=== PATIENT | female | born 1970 | race Caucasian/White ===

== ENCOUNTER 2024-03-12 08:04 | Outpatient (AMB) | payer BC, SELFPAY ==
--- NOTE | 2024-03-12 08:05 | A.OFFVIS_ITS ---
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 Pt reports she has been forgetful over the last 15 years, but denies it getting worse throughout the years. 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 she started noticing issues with her memory in her mid 30s. Some examples - watches a movie and does not recall in 2 days, she works at [employer] and uses a lot of reminder notes to help etc. she has trouble recalling important information that she learnt . she says that she would be the worst at [employer]. she has trouble remembering characters names in a TV episode. she moved from [place] at age 3 and learned Maori in 1 st grade and graduated Top 5 in the class. she has anxiety - for fear of being noticed for her recall issues. she sleeps ok - snores and has daytime fatigue. she used to drink 2 glasses of wine every night she feels her life is stressful - 2 children are in Autism spectrum ( 23, 21)she had depression anxiety but was not able to tolerate SSRI No h/o head injury No h/o dementia PFSH Medical History (Updated 03/12/24 @ 08:39 by Quita Allen MD) Hypersomnia Snoring Cognitive change Vitamin D deficiency Tachycardia Liver lesion Hyperlipidemia Colon polyp Surgical History H/O section Family History Father No problems noted. Mother No problems noted. Social History Household Members: Spouse and Children Alcohol intake: current Comment: Occasional- weekends Patient Tobacco Use Status: Former Tobacco user Years Smoked: Quit in 2019- on and off for 30 years Physical Exam Vital Signs: Last Vital Signs Pulse 74 03/12/24 08:10 Resp 16 03/12/24 08:10 BP 110/72 03/12/24 08:10 Pulse Ox 97 03/12/24 08:10 Oxygen Delivery Method Room Air 03/12/24 08:10 BMI result Body Mass Index 31.3 Const General: cooperative, healthy appearing and comfortable Nutritional Appearance: average body habitus Orientation/consciousness: patient oriented x3 Limitations: no limitations Eyes Pupils: Equal, round and reactive pupils present Neuro General: patient oriented x3, gait normal, tone normal and moves all extremities Cranial nerves: Yes Facial sensation intact/muscles of mastication intact, Yes Equal, round and reactive pupils present, Yes Bilaterally intact EOM present, Yes Nystagmus not present, Yes Normal facial strength present, Yes Midline tongue present, Yes Symmetric palate elevation present and Yes Ability to bilaterally elevate shoulders present Cognition (Neuro): normal cognition Gait exam (Neuro): Normal gait present Motor exam (neuro): 5/5 motor strength present throughout and Normal motor muscle tone present throughout Deep tendon reflexes (DTR's): Right triceps reflex intensity grade: 2+, Left triceps reflex intensity grade: 2+, Rt Biceps (C5, C6): 2+, Left biceps reflex intensity grade: 2+, Right brachioradialis reflex intensity grade: 2+, Left brachioradialis reflex intensity grade: 2+, Right patellar reflex intensity g rade: 2+ and Left patellar reflex intensity grade: 2+ Coordination: [id number] test normal Orientation What is the (year) (season) (date) (day) (month)?: year, season, date, day and month Where are we (state) (county) (town or city) (hospital) (floor)?: state, county, town or city, hospital/clinic and floor Registration Name of 3 unrelated objects clearly and slowly, then ask patient to repeat all 3 of them. (1st repeat determines score. Make sure they can repeat all three): object 1, object 2 and object 3 Attention & Calculation (CHOOSE ONE) Ask pt to begin with 100 & count backward by 7. Stop after 5 repeats. If pt cannot ask them to spell the word WORLD backward.: 93, 86, 79, 72 and 65 Recall Ask patient to repeat the 3 items from question #3.: object 1, object 2 and object 3 Language Show patient a wristwatch & ask what it is. Repeat for pencil.: watch and pencil Ask the patient to repeat the phrase 'No ifs, ands, or buts' after you.: correct Ask the patient to 'take a piece of paper with their right hand' 'fold paper in half' 'place paper on floor': take paper in right hand, fold paper in half and place paper on floor Print the sentence 'CLOSE YOUR EYES' on a piece. If patient actually closes eyes then score.: followed written direction Give patient a blank piece of paper & ask to write a sentence. Score if it contains a noun & verb.: sentence contains subject and verb Ask patient to copy figure of intersecting pentagons exactly. Score if all 10 angles & 2 intersects are included.: all 10 angles present & 2 are intersected Score Score: 30 Assessment & Plan Assessment & Plan (1) Cognitive change: Comment: ? poorly controlled mood, ? sleep apnea Code(s): R41.89 - Other symptoms and signs involving cognitive functions and awareness (2) Snoring: Code(s): R06.83 - Snoring (3) Hypersomnia: Code(s): G47.10 - Hypersomnia, unspecified Plan MRI Brain - April 2024 - claustrophobia - needs open MRI Suggested psychology follow up for mood Home sleep test to r/o sleep apnea Check Vit B 12 Orders: Orders MR brain wo con w neuroquant Today R41.89 - Other symptoms and signs involving cognitive functions and awareness Vitamin B12 and Folate Today R41.89 - Other symptoms and signs involving cognitive functions and awareness RT home sleep study Today G47.10 - Hypersomnia, unspecified, R06.83 - Snoring Coding Level of Care Code New Pt Level 4 (83549) Diagnoses Cognitive change R41.89 Snoring R06.83 Hypersomnia G47.10
[2024-03-12 08:10] VITALS: BP 110/72; PULSE 74; RESP 16; O2SAT 97; BMI 31.3
== END 2024-03-12 08:51 | disposition home or self-care (01) ==
PROVIDERS: PCP Physician Assistant Medical; Visit Provider Psychiatry & Neurology Neurology
DX: R41.89 Other symptoms and signs involving cognitive functions and awareness (principal); R06.83 Snoring; G47.10 Hypersomnia, unspecified
CPT/HCPCS: 99204

== ENCOUNTER → 2024-03-12 08:04 | Outpatient (BNVA) | payer OTHER, BC, SELFPAY | PROVIDERS: PCP Physician Assistant Medical; Visit Provider Psychiatry & Neurology Neurology ==

== ENCOUNTER 2024-03-12 08:56 | Outpatient (REF) | payer BC, SELFPAY ==
[2024-03-12 17:51] LABS: Folate 8.7 ng/mL (> or = 4.0); Vitamin B12 988 pg/mL (200-900)
== END 2024-03-12 08:57 | disposition home or self-care (01) ==
LOC: HO.HKASLDS 08:56
PROVIDERS: Visit Provider Psychiatry & Neurology Neurology
DX: R41.89 Other symptoms and signs involving cognitive functions and awareness (principal)
CPT/HCPCS: 36415; 82607; 82746

== ENCOUNTER → 2024-04-21 08:04 | Outpatient (REF) | payer BC, SELFPAY | LOC: HO.SL 08:04 | PROVIDERS: PCP Physician Assistant Medical; Visit Provider Psychiatry & Neurology Neurology | DX: G47.33 Obstructive sleep apnea (adult) (pediatric) (principal); G47.10 Hypersomnia, unspecified; R06.83 Snoring | CPT/HCPCS: 95806 ==

== ENCOUNTER → 2024-04-21 08:15 | Outpatient (BNV) | payer BC, SELFPAY | PROVIDERS: PCP Physician Assistant Medical; Visit Provider Psychiatry & Neurology Neurology | DX: G47.33 Obstructive sleep apnea (adult) (pediatric) (principal) | CPT/HCPCS: 95806 ==

== ENCOUNTER 2024-09-10 11:00 | Outpatient (AMB) | payer BC, SELFPAY ==
--- NOTE | 2024-09-10 11:01 | A.OFFVIS_ITS ---
Vital Signs 09/10/24 11:02 Height 5 ft 2 in Weight 160 lb BMI 29.3 Intake Visit Reasons: 6 month F/U Intake Note: Patient presents for 6 month follow up Allergies fluoxetine [From Prozac] Allergy (Intermediate, Verified 09/10/24 11:03) Tachycardia HPI Comments Details: 53y/o right handed female comes for follow up of memory issues.He rMRI brain quant analysis was normal .she denies worsening.she is seeing a psychologist for mood now. History from initial history-she started noticing issues with her memory in her mid 30s. Some examples - watches a movie and does not recall in 2 days, she works at [employer] and uses a lot of reminder notes to help etc. she has trouble recalling important information that she learnt . she says that she would be the worst at [employer]. she has trouble remembering characters names in a TV episode. she moved from [place] at age 3 and learned Arabic in 1 st grade and graduated Top 5 in the class. she has anxiety - for fear of being noticed for her recall issues. she sleeps ok - snores and has daytime fatigue. she used to drink 2 glasses of wine every night she feels her life is stressful - 2 children are in Autism spectrum ( 23, 21)she had depression anxiety but was not able to tolerate SSRI No h/o head injury No h/o dementia PFS Medical History Obstructive sleep apnea hypopnea, mild Hypersomnia Snoring Cognitive change Vitamin D deficiency Tachycardia Liver lesion Hyperlipidemia Colon polyp Surgical History H/O section Family History Father No problems noted. Mother No problems noted. Social History Household Members: Spouse and Children Alcohol intake: current Comment: Occasional- weekends Patient Tobacco Use Status: Former Tobacco user Years Smoked: Quit in 2019- on and off for 30 years Physical Exam Vital Signs: BMI result Body Mass Index 29.3 Const General: cooperative, healthy appearing and comfortable Nutritional Appearance: average body habitus Orientation/consciousness: patient oriented x3 Limitations: no limitations Eyes Pupils: Equal, round and reactive pupils present Neuro General: patient oriented x3, gait normal, tone normal and moves all extremities Cranial nerves: Yes Facial sensation intact/muscles of mastication intact, Yes Equal, round and reactive pupils present, Yes Bilaterally intact EOM present, Yes Nystagmus not present, Yes Normal facial strength present, Yes Midline tongue present, Yes Symmetric palate elevation present and Yes Ability to bilaterally elevate shoulders present Cognition (Neuro): normal cognition Gait exam (Neuro): Normal gait present Motor exam (neuro): 5/5 motor strength present throughout and Normal motor muscle tone present throughout Coordination: [id number] test normal Assessment & Plan Assessment & Plan (1) Cognitive change: Comment: ? poorly controlled mood, ? sleep apnea Code(s): R41.89 - Other symptoms and signs involving cognitive functions and awareness Category: Medical (2) Obstructive sleep apnea hypopnea, mild: Code(s): G47.33 - Obstructive sleep apnea (adult) (pediatric) Category: Medical Plan MRI Brain - reviewed Psychology follow up for mood Home sleep test - c/w mild sleep apnea . declines CPAP . suggested position therapy and weight loss. she lost 10 lbs on wegovy Vit B 12 - normal Orders: Referrals Speech and Hearing Referral R41.89 - Other symptoms and signs involving cognitive functions and awareness Coding Level of Care Code Est Pt Level 4 (44713) Complex EM visit Add On G2211 Diagnoses Cognitive change R41.89 Obstructive sleep apnea hypopnea, mild G47.33
[2024-09-10 11:02] VITALS: BMI 29.3
== END 2024-09-10 11:24 | disposition home or self-care (01) ==
PROVIDERS: PCP Physician Assistant Medical; Visit Provider Psychiatry & Neurology Neurology
DX: R41.89 Other symptoms and signs involving cognitive functions and awareness (principal); G47.33 Obstructive sleep apnea (adult) (pediatric)
CPT/HCPCS: 99214

== ENCOUNTER → 2024-09-10 11:00 | Outpatient (BNVA) | payer BC, SELFPAY | PROVIDERS: PCP Physician Assistant Medical; Visit Provider Psychiatry & Neurology Neurology ==

== ENCOUNTER 2024-10-30 09:27 | Outpatient (RCR) | payer BC, SELFPAY ==
--- NOTE | 2024-11-05 15:59 | MHC.SP.ADU ---
Referring provider: Dr. Quita Allen Reason for Referral: Memory loss Type of Treatment: 24435 Clinical Swallowing Evaluation Date of Plan of Treatment: 10/30/24 Onset of Symptoms/Illness: 09/10/24 Date Treatment Started: 10/30/24 Medical Diagnosis: Speech apnea, mild Primary Speech Language Diagnosis: Other Secondary Speech Language Diagnosis: History Mrs. Hadley is a successful 53 year-old Mother of three. She comes in today with concern of her memory and attention. She reports this has been progressing for the past 15 years. Two of her children, one 24 and one 22 have Autism Spectrum Disorder. The 24 year-old is in College now. She notes the 22 year-old to be, more severe . 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 Past Speech Language Therapy: None. Other Therapies Seen in Current Calendar Year: None Swallowing History: Dysphagia Specific: Within Functional Limits Comments: Pre-eval Risk for Aspiration: None Pre-evaluation Dietary Consistencies: Pre-eval Liquid Intake: Pre-eval Medication Intake: Reported Speech, Language, Cognition difficulties: Understanding Attention Memory Cognition Quality of Life: She feels as though her co-workers, put you on the spot . Patient Stated Goal of Speech-Language Therapy: Evaluation only. Assessment Speech Production: Within Functional Limits Clinical Impression: Did Not Test Observations: Testing not indicated. Informal Voice Assessment: Voice Loudness: Normal Voice Nasal Resonance: Normal Voice Oral Resonance: Normal Voice Phonatory-based Quality: Normal Voice Pitch: Normal Voice Other Observations: Clinical Impression: Did Not Test Clinicial Observations: Testing not indicated. Tests of Speech & Lang Adults: Clinical Impression: Did Not Test Observations: Testing not indicated. Tests of Cognition: RBANS Clinical Impression: Intact Observations: The patient participated in select subtests of the Repeatable Battery for the Assessment of Neuropsychological Status - Updated. Subtests were sufficient to yield a Total Scale Score. The RBANS is considered a screening battery for cognitive function and is repeatable for the purpose of evaluating any changes in function. It is intended for use with adolescents and adults, ages 12 to 89 years. Composite domains assessed in this test are: Immediate Memory, Visuospatial/Constructional, Language, Attention, and Delayed Memory. His scores are tabled below: I.) Immediate Memory Index: 83 Ia.) List Learning: -- Scaled Score: 8 Ib.) Story Memory: -- Scaled Score: 6 The Immediate Memory Index measures, ?initial encoding and learning of complex and simple verbal information. Low scores on this index indicated difficulties with verbal learning.? The score is derived from the participant?s performance on the subtests List Learning and Story Memory. List Learning measures, ?rote verbal memory function.? Participants are asked to repeat back a list of ten words presented to them verbally across four trials. Poor performance on this subtest indicates that, ?the examinee may have difficulty learning new verbal information and that repetition may not be beneficial?, if they do not improve across trials. The Story Memory subtest measures, ?memory for conceptually related verbal information.? Here, a short story is read to them across two trials and they are asked to recall details from the story. ?The test is a measure of verbal memory functioning for information that is related?. As with List Learning, participants that do not demonstrate a positive learning curve across trials could indicate, ?difficulty with learning new verbal learning, and that repetition may not help, or that the examinee may have difficulty retrieving new information from memory. II.) Visuospatial/Constructional Index: 87 IIa.) Figure Copy: -- Scaled Score: 2 IIb.) Line Orientation: -- Percentile Group: >75 The Visuospatial/Constructional Index is derived from the Figure Copy and Line Orientation subtests. It measures, ?basic visuospatial perception and the ability to copy a design from a model?. Low performance with this index can indicate, ?difficulties with processing and using visuospatial information?, or, ?visual impairments or attention disorders such as kiersten neglect?. The Figure Copy subtest requires the examinee to copy a complex geometrical design from a model that is present throughout the task. ?This requires many cognitive skills including visuospatial reasoning, attention to visual details, motor programming, and to a lesser degree, organization and fine-motor ability?. Points are given for specific details, as well as specific placement in the context of the entire image. The Line Orientation subtest measures, ?the examinee?s ability to correctly identify spatial orientation in two-dimensions?. Poor performance indicates significant visuospatial impairments in acuity and attention. III.) Language Index: 102 IIIa.) Picture Naming: -- Percentile Group: 51-75 IIIb.) Semantic Fluency: -- Scaled Score: 11 The Language Index is, ?a measure of expressive language functioning?. Low scores with this subtest ?would indicate difficulties with language functioning? and, ?while the overall score would still indicate language difficulties, the deficits may be more related to fluency versus naming skills.? The Picture Naming subtest is provided by showing the participant a series of 10 simple line drawing and asking them to name them. The Semantic Fluency subtest is a measure of, ?the examinee?s ability to retrieve and express words using a semantic prompt?. In brief, the examinee is given a category and asked to name as many exemplars as they can in 60 seconds. Low scores, ?indicate significantly impaired ability to retrieve and express verbal information from long-term memory stores?. IV.) Attention Index: 115 Daniel.) Digit Span: -- Scaled Score: 11 IVb.) Coding: -- Scaled Score: 14 The Attention Index is a derived from the Digit Span and Coding subtests. It is a measure of, ?simple auditory registration, visual scanning and processing speed. Low scores on this index indicate, ?difficulties with basic attention and processing speed?. Difficulties can vary between the subtests suggesting acute differences between auditory and visual processing and attention. Digit Span is a measure of, ?auditory registration and brief focused attention. Low scores can also indicate difficulties with auditory attention and registration?. In it, the examinee is read a series of single digit numbers and asked to repeat them back in the same order. ?Impairments in auditory acuity can also influence performance on this test?. Coding is a measure of, ?brief, focused, visual attention, visual scanning and processing speed?. In it, the examinee is given a perez at the top of the page where each symbol is associated with a different number. The examinee is then asked to fill out as many numbers to corresponding symbols as they can in 90 seconds. In incorporates the notion of diligence and sustained attention as well. Difficulties can indicate problems with, ?processing speed and focused visual attention?. V.) Delayed Memory Index: 91 Va.) List Recall: -- Percentile Group: 17-25 Vb.) List Recognition: -- Percentile Group: 51-75 Vc.) Story Recall: -- Scaled Score: 8 Vd.) Figure Recall: -- Scaled Score: 5 The Delayed Memory Index is derived by combining the subtest scores for List Recall, Story Recall, and Figure Recall, and cross-referencing them with the List Recognition subtest. Auditory and Visual subtest are combined together. Difference between subtests can be highlighted to provide more specific information about areas of deficit and strength. ?The deficits, may be more related to verbal more than visual memory, or free recall as opposed to recognition memory or general variability in memory functioning.? .) Total Scale Score: 93 (%ile=32) SUMMARY: There were a wide range of scores across subtests on the RBANS. From a scaled score of 2 on Figure Copy, to a scaled score of 14 on Coding. She was noted to calix through the Figure Copy subtest, whether out of disinterest or lack attention cannot be quantified. This also led to a drop in her recall of the figure. Most notably was a decrease in scores for her initial Story Memory (SS=6). In her first trial she only recalled 5 units of information, but in her second, she recalled 8 out of 12. Her overall performance fell within the Average Range, however given her education and vocation, this may be considered below expectation. We discussed her results, and the opportunities for treatment that we could provide. Given her high-level of functioning and current expectations, weekly therapy did not seem like a good fit at this time. She also reports multiple stressors in her life. I would recommend a full Neuropsychological Evaluation to better parse out her direct needs. Augmentative and Alternative Communication: Did Not Test Observations: Testing not indicated. Impressions and Recommendations Summary: Impact on Daily Function/Activity Limitations: Daily Activities: Mild Interpersonal Interactions: Mild Education: None Employment: Mild Community: None Prognosis for Improvement: Good Comment: Mrs. Hadley does not present with Mild Cognitive Impairment. Recommendation for Speech Therapy: NA:Typical Evaluation Recommended Referrals to be Discussed with Primary Care Provider: Neuropsychological Eval Patient Education: Completed: Yes Patient/Caregiver Education: Described Results of Evaluation Patient expressed understanding of evaluation Patient agrees with goals and treatment plan Legal Support Manager Clinican/Clinical Fellow: No Supervisory Statement: N/A Speech Language Pathologist: Kai Garcia M.A., CCC-MICROELECTRONICS ASSEMBLER
== END 2024-11-09 14:13 | disposition home or self-care (01) ==
LOC: HO.SH 09:27
PROVIDERS: PCP Physician Assistant Medical; Visit Provider Psychiatry & Neurology Neurology
DX: R41.89 Other symptoms and signs involving cognitive functions and awareness (principal)

== ENCOUNTER 2025-07-05 07:55 | Outpatient (AMB) | payer OTHER, SELFPAY ==
--- NOTE | 2025-07-05 07:57 | A.OFFVIS_ITS ---
Vital Signs 07/05/25 07:58 Height 5 ft 2 in Weight 153 lb 2 oz BMI 28.0 BP 110/82 Blood Pressure Location Rt brachial Position Sitting Pulse 79 Pulse Source Pulse Oximeter Pulse Oximetry (%) 97 Oxygen Delivery Method Room Air Intake Visit Reasons: follow up Intake Note: Patient presents follow up for cognitive Allergies fluoxetine (From Prozac) Allergy (Intermediate, Verified 07/05/25 08:02) Tachycardia HPI Comments Details: 54y/o right handed female comes for follow up of memory issues.Her MRI brain quant analysis was normal .she denies worsening.she is seeing a psychologist for mood now. she had neuropsych eval with Wilberto Boyd and was told it was OK.she is under a lot of stress as she has 2 special ed kids and sees a therapist. History from initial history-she started noticing issues with her memory in her mid 30s. Some examples - watches a movie and does not recall in 2 days, she works at [employer] and uses a lot of reminder notes to help etc. she has trouble recalling important information that she learnt . she says that she would be the worst at [employer]. she has trouble remembering characters names in a TV episode. she moved from [place] at age 3 and learned Botswanan in 1 st grade and graduated Top 5 in the class. she has anxiety - for fear of being noticed for her recall issues. she sleeps ok - snores and has daytime fatigue. she used to drink 2 glasses of wine every night she feels her life is stressful - 2 children are in Autism spectrum ( 23, 21)she had depression anxiety but was not able to tolerate SSRI No h/o head injury No h/o dementia [facility] Medical History Obstructive sleep apnea hypopnea, mild Hypersomnia Snoring Cognitive change Vitamin D deficiency Tachycardia Liver lesion Hyperlipidemia Colon polyp Surgical History History of bronchoscopy H/O section Family History Father No problems noted. Mother No problems noted. Social History Household Members: Spouse and Children Alcohol intake: current Comment: Occasional- weekends Patient Tobacco Use Status: Former Tobacco user Years Smoked: Quit in 2019- on and off for 30 years Physical Exam Vital Signs: Last Vital Signs Pulse 79 07/05/25 07:58 BP 110/82 07/05/25 07:58 Pulse Ox 97 07/05/25 07:58 Oxygen Delivery Method Room Air 07/05/25 07:58 BMI result Body Mass Index 28.0 Const General: cooperative, healthy appearing and comfortable Nutritional Appearance: average body habitus Orientation/consciousness: patient oriented x3 Limitations: no limitations Eyes Pupils: Equal, round and reactive pupils present Neuro General: patient oriented x3, gait normal, tone normal and moves all extremities Cranial nerves: Yes Facial sensation intact/muscles of mastication intact, Yes Equal, round and reactive pupils present, Yes Bilaterally intact EOM present, Yes Nystagmus not present, Yes Normal facial strength present, Yes Midline tongue present, Yes Symmetric palate elevation present and Yes Ability to bilaterally elevate shoulders present Cognition (Neuro): normal cognition Gait exam (Neuro): Normal gait present Motor exam (neuro): 5/5 motor strength present throughout and Normal motor muscle tone present throughout Coordination: [id number] test normal Assessment & Plan Assessment & Plan (1) Cognitive change: Comment: ? poorly controlled mood, ? sleep apnea Code(s): R41.89 - Other symptoms and signs involving cognitive functions and awareness Category: Medical (2) Obstructive sleep apnea hypopnea, mild: Code(s): G47.33 - Obstructive sleep apnea (adult) (pediatric) Category: Medical Plan MRI Brain - reviewed Suggested cognitive therapy Psychology follow up for mood Home sleep test - c/w mild sleep apnea . declines CPAP . suggested position therapy and weight loss. Vit B 12 - normal Coding Level of Care Code Est Pt Level 4 (70511) Complex EM visit Add On G2211 Diagnoses Cognitive change R41.89 Obstructive sleep apnea hypopnea, mild G47.33
[2025-07-05 07:58] VITALS: BP 110/82; PULSE 79; O2SAT 97; BMI 28.0
--- OUTSIDE RECORDS SUMMARY | 2025-07-05 07:58 | XMS_ITS | Clinical Summary ---
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 3 Active LORazepam (Ativan) 0.5 mg tablet Take 1 tablet (0.5 mg total) by mouth every 6 (six) hours if needed for anxiety for up to 10 days. Max Daily Amount: 2 mg 30 tablet 5 Active buPROPion XL (WELLBUTRIN XL) 150 mg 24 hr tabletIndicati ons:Other obesity due to excess calories TAKE 1 TABLET BY MOUTH EVERY DAY IN THE MORNING 90 tablet 1 5 Active atorvastatin (LIPITOR) 10 mg tablet Take 1 tablet (10 mg total) by mouth 1 (one) time each day. 90 each 2 5 Active docusate sodium (COLACE) 100 mg capsule Take 1 capsule (100 mg total) by mouth 1 (one) time each day if needed for constipation. 90 each 1 5 Active metoprolol succinate (TOPROL-XL) 50 mg 24 hr tablet Take 1 tablet (50 mg total) by mouth 1 (one) time each day. 90 tablet 3 5 Active tirzepatide (Mounjaro) 12.5 mg/0.5 mL injection Inject 0.5 mL (12.5 mg total) under the skin every 7 (seven) days for 28 days. 2 mL 5 025 Active bisacodyL (DULCOLAX) 5 mg EC tablet Take 2 tablets by mouth right before beginning bowel prep. See instructions provided by the office 2 tablet 5 025 Discontin ued(Presc riber Discontin ued) metoprolol succinate (TOPROL-XL) 50 mg 24 hr tablet Take 1 tablet (50 mg total) by mouth 1 (one) time each day. 90 tablet 1 5 025 Discontin ued(Reord er) tirzepatide, weight loss, (Zepbound) 12.5 mg/0.5 mL injectionIndic ations:Over weight Inject 0.5 mL (12.5 mg total) under the skin every 7 (seven) days. 2 mL 2 5 025 Discontin ued(Alter margaret therapy) Active Problems Problem Noted Date Diagnosed Date Depression 03/16/2025 Endobronchial mass 12/04/2024 Assessment & Plan (02/08/2025 5:45 PM EDT): I did go over the findings from the pathology sent out to [facility] which suggest which suggest that this is a benign process. My recommendation for her at this time would be to use serial imaging and bronchoscopies to evaluate. With that plan in mind we will plan on doing a 6-month CT scan which will be in June of this year and a follow-up with me after that. At that time we will probably plan on a bronchoscopy to evaluate ongoing. With scheduled bronchoscopies and CAT scans alternating probably every 6 months. All questions were answered. 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 The pathology was reviewed as well and [place] which was not any more definitive as to whether this is actually malignancy or not. Genetic sequencing has been sent on this specimen for additional information after discussion at our multidisciplinary thoracic oncology conference today. This should give us more clarity as to whether this is mucoepidermoid carcinoma with specific markers. We will expedite her PET scan to happen this week followed by a visit with oncology next week and hopefully all the results will be back at that time. She should also follow-up with me after that just to make sure things are moving in the correct direction. They will also call [facility] to see an additional opinion on the matter given that this is a very rare occurrence. I have also prescribed her small dose of Ativan as this whole process has made her very anxious. Assessment & Plan (12/31/2024 11:21 AM EST): 54-year-old woman with what appears to be a persistent endobronchial nodule in the left mainstem bronchus this just at the takeoff of the left upper lobe. Had a long discussion with her over video findings on her CT scans as described in the HPI. We also talked nodules possibilities. Particularly a benign polyp versus carcinoid type tumor would be the main items on the differential. The next best step is for direct visualization and possible biopsy for diagnostic purposes only as this does not seem to be causing her any symptoms. I did discuss risk benefits alternatives of this procedure which she understood and agreed to proceed. Assessment & Plan (12/04/2024 1:16 PM EST): 54-year-old woman found to have initially a small pulmonary nodule on an abdominal scan repeat CT scan again shows that pulmonary nodule however there is an endobronchial soft tissue mass at the left upper lobe takeoff of the left mainstem bronchus. This is in a nondependent portion. I did explain the findings on a CAT scan to her including the pulmonary nodule and the endobronchial soft tissue mass which she seemed understand. I also talked again about pulmonary nodules in general and how their size, shape, and pack changer time affect her level of suspicion for malignancy. My plan for her with regards to the endobronchial soft tissue is to prove that this is not mucus we will have her deep breathe and cough over the next few weeks and then we will repeat the CT scan. If this area is still there then we will plan on doing a bronchoscopy with possible biopsy. All questions were answered. Pulmonary nodule 10/30/2024 Assessment & Plan (10/30/2024 1:03 PM EST): 53-year-old woman former smoker with a 4 mm pulmonary nodule at the base of the left lower lobe. I did describe and explain her imaging testing as described in the HPI. We also talked about pulmonary nodules in general and how their size, shape, and pack changer time affect her level of suspicion for malignancy. I do think this has a low likelihood of being malignancy but will need a formal chest CT to evaluate the entire chest including lymph nodes in the remainder of the lung parenchyma. Plan will be to get a CT scan of the chest and follow-up with me in the office in 2 to 3 weeks. All questions were answered. Class 1 obesity with body ma ss index (BMI) of 30.0 to 30.9 in adult 09/11/2024 Palpitations 03/18/2023 Assessment & Plan (06/07/2025 8:05 AM EDT): Patient is history of palpitations and continues on metoprolol for suppression. She denies any recurrent palpitations, dizziness, lightheadedness or exertional symptoms. She will continue with Toprol as prescribed. Colon polyp 2019 Overview (09/11/2024): Diminutive polyps-resected- rpt CN in 5 yrs Liver lesion 10/27/2018 Overview (09/11/2024): Ultrasound on June 30, 2019 recommend repeat 6 months. Hyperlipidemia 08/13/2018 Assessment & Plan (06/07/2025 8:05 AM EDT): Being monitored by her primary care provider. She continues on atorvastatin 10 mg once a day. I have reviewed with the patient the importance of a heart healthy lifestyle which includes eating a low-fat low-salt diet, getting regular exercise, maintaining a healthy weight, not smoking, and following up with routine medical care. Low vitamin D level 08/29/2017 Tachycardia 08/29/2017 Overview (09/11/2024): Taking metoprolol Encounters Date Type Department Care Team Description 06/29/2025 4:00 PM EDT Office Visit Adult Medicine [facility] [address] [place] [phone] Aaliyah Brewer PA Adult general medical examination (Primary Dx); Screening cholesterol level; Screening for diabetes mellitus 06/07/2025 7:40 AM EDT Office Visit [facility] [address] [place] [phone] Heide Gold NP Palpitations (Primary Dx); Mixed hyperlipidemia 05/20/2025 8:00 AM EDT Office Visit Bariatric Surgery [facility] [address] [facility] [address] [place] [address] Ebony Linares MD Over weight (Primary Dx) 04/06/2025 Telephone Gastroenterology [facility] [address] [facility] [address] [place] [address] Elias Melendez MD provider call back from Last 3 Months Surgical History Surgery Date Site/Laterality Comments SECTION PROCEDURE: HISTORICAL COLONOSCOPY PROCEDURE: HISTORICAL COLONOSCOPY Medical History Medical History Date Comments Hyperlipidemia 08/13/2018 DX:Hyperlipidemi a Liver lesion 10/27/2018 DX:Liver lesion Anxiety state DX:Anxiety state Pulmonary nodule Depression 03/16/2025 Family History Medical History Relation Name Comments Breast cancer Aunt maternal aunt- bilateral Lung cancer Father smoker Depression Mother Heart attack Mother Hyperlipidemia Mother Other: pancreatic cancer Mother Other: lung cancer Paternal Grandfather s moker Relation Name Status Comments Aunt Alive Father Maternal Grandfather Maternal Grandmother Mother Paternal Grandfather Paternal Grandmother Social History Tobacco Use Types Packs/Day Years Used Date Smoking Tobacco: Former Cigarettes Q uit: 08/19/2018 Smokeless Tobacco: Never Tobacco Cessation:Counseling Given: Not Answered Alcohol Use Standard Drinks/Week Comments Yes 0 (1 standard drink = 0.6 oz pur e alcohol) 8 drink per wk Housing Instability Answer Date Recorde d Are you worried that in the next 2 months you may not have stable housing? Patient declined 03/15/2025 Food Access & Nutrition Answer Date Rec orded Do you have access to a vari ety of food including fruits and vegetables? Patient declined 03/15/2025 Health Literacy Answer Date Recorded How often do you need to hav e someone help you when you read instructions, pamphlets, or other written material from your doctor or pharmacy? Patient declined 03/15/2025 Caregiver: How often do you need to have someone help you when you read instructions, pamphlets, or other written material from your doctor or pharmacy? Not on file 025 Financial Risk Answer Date Recorded How hard is it for you to pa y for the very basics like food, housing, medical care, and air conditioning / heating? Patient declined 03/15/2025 Transportation Answer Date Recorded Has the lack of transportati on kept you from meetings, work, or from getting things needed for daily living? Patient declined 03/15/2025 Has the lack of transportati on kept you from medical appointments or from getting medications? Patient declined 03/15/2025 Social Isolation Answer Date Recorded How often do you feel lonely or isolated from those around you? Patient declined 03/15/2025 Food Risk Answer Date Recorded Within the past 12 months we worried whether our food would run out before we got money to buy more. Patient declined 025 Within the past 12 months th e food we bought just didn't last and we didn't have money to get more. Patient declined 02/24 Dependent Care Answer Date Recorded Do you need help finding or paying for care for your loved ones. For example, summer child caregiver or elderly care for an older adult? Patient declined 03/15/2025 Education Answer Date Recorded Do you think completing more education or training, like finishing a GED, going to college, or learning a trade, would be helpful for you? Patient declined 03/15/2025 Employment and Income Answer Date Recor ded During the last four weeks, have you been actively looking for work? Patient declined 03/15/2025 Living Situation Answer Date Recorded What is your living situation? 0 03/15/2025 Interpersonal Safety Answer Date Record ed Physical Abuse 03/11/2025 Verbal Abuse 03/11/2025 Comments No Sex and Gender Information Value Date Recorded Sex Assigned at Female 12/21/2024 1:01 PM EST Legal Sex Female 4:06 AM EST Gender Identity Female 12/21/2024 1:01 PM EST Sexual Orientation Straight 01/06/2025 12 :12 PM EST Obstetrics History Last Filed Vital Signs Vital Sign Reading Time Taken Comments Blood Pressure 105/76 06/29/2025 4:05 PM EDT Pulse 79 06/29/2025 4:05 PM EDT Temperature 36.5 C (97.7 F) 06/29/2025 4:05 PM EDT Respiratory Rate 14 06/29/2025 4:05 PM EDT Oxygen Saturation 99% 06/07/2025 7:41 AM EDT Inhaled Oxygen Concentration - - Weight 69.4 kg (153 lb) 06/29/2025 4:05 PM EDT Height 157.5 cm (5' 2 ) 06/29/2025 4:05 PM EDT Body Mass Index 27.98 06/29/2025 4:05 PM EDT Plan of Treatment Upcoming Encounters Date Type Department Care Team (Late st Contact Info) Description 08/30/2025 8:20 AM EDT Office Visit Gastroenterology - [address] [phone] Jazmine Henry NP [address] [address] 10/28/2025 8:30 AM EST Office Visit Bariatric Surgery - [place] [address] [phone] Ebony Linares MD [address] [address] 10/29/2025 7:45 AM EST Office Visit Adult Medicine [facility] [address] [place] [address] Bertha Shipman MD [address] [place] [address] 11/03/2025 5:00 PM EST Appointment [facility] CT Scan [address] [place] [phone] 11/08/2025 11:30 AM EST Office Visit Thoracic Surgery - [place] [address] [facility] [address] [place] [phone] Nelson Mc MD [address] [facility] [address] [place] [address] Health Maintenance Due Date Last Done Comments Breast Cancer Screening 1970 DTaP,Tdap,and Td Vaccines (1 - Tdap) 1987 Hepatitis A Vaccines (1 of 2 - Risk 2-dose series) 1987 Hepatitis B Vaccines (1 of 3 - 19+ 3-dose series) 1987 Pneumococcal Vaccine: 50+ Years (1 of 2 - PCV) 1987 Zoster Vaccines (1 of 2) 1987 HIV Screening 11/03/2022 COVID-19 Vaccine (4 - 2023-2 5 season) 2024 06/23/2021, 04/09/2021, 03/19/2021 Influenza Vaccine (#1) 2025 Social Influencers of Health Screening 03/15/2026 03/15/2025 Cervical Cancer Screening: P ap Smear 11/07/2026 11/07/2023 Cholesterol Screening (Lipid Panel) 07/17/2029 07/17/2024, 07/17/2024 Colorectal Cancer Screening: Colonoscopy 03/11/2030 03/11/2025, 11/23/2019 Hepatitis C Screening Completed 10/26/2022 Depression Screening Completed 03/15/2025 HIB Vaccines Aged Out No longer eligi ble based on patient's age to complete this topic HPV Vaccines Aged Out No longer eligi ble based on patient's age to complete this topic IPV Vaccines Aged Out No longer eligi ble based on patient's age to complete this topic MMR Vaccines Aged Out No longer eligi ble based on patient's age to complete this topic Meningococcal ACWY Vaccine Aged Out N o longer eligible based on patient's age to complete this topic Meningococcal B Vaccine Aged Out No l onger eligible based on patient's age to complete this topic RSV Immunization Patients Under 20 months Aged Out No longer eligible b ased on patient's age to complete this topic Varicella Vaccines Aged Out No longer eligible based on patient's age to complete this topic Procedures Procedure Name Priority Date/Time Associated Diagnosis Comments COLONOSCOPY Routine 03/11/2025 7:52 AM EDT History of colon polyps LIPID PANEL Routine 07/17/2024 HM PAP SMEAR Routine 11/07/2023 HEPATITIS C SCREENING Routine 10/26/2022 from Last 3 Months or Most Recently Relevant to Health Maintenance Results * COLONOSCOPY Anesthesia - MAC; [facility] ENDOSCOPY (03/11/2025 7:52 AM EDT) Anatomical Region Laterality Modality Endoscopy 03/11/2025 7:37 AM EDT Impressions 03/11/2025 7:53 AM EDT - Hemorrhoids found on perianal exam. - One 7 mm polyp in the transverse colon, removed with a cold snare. Resected and retrieved. - Internal hemorrhoids. Recommendation: - Await pathology results. - Repeat colonoscopy is recommended. The colonoscopy date will be determined after pathology results from today's exam become available for review. Narrative 03/11/2025 7:53 AM EDT [facility] GI Patient Name: Park Whitmore Procedure Date: 03/11/2025 7:37 AM Date of : 1970 Age: 54 Gender: Female Note Status: Finalized Attending MD: Elias Melendez MD, Procedure Date No Time: 03/11/2025 Procedure: Colonoscopy Indications: High risk colon cancer surveillance: Personal history of colonic polyps, Last colonoscopy: October 2019 Providers: Elias Melendez MD Referring MD: Elias Melendez MD Medicines: Monitored Anesthesia Care Complications: No immediate complications. Estimated blood loss: Minimal. Estimated Blood Loss: Estimated blood loss was minimal. Procedure: Pre-Anesthesia Assessment: - Prior to the procedure, a History and Physical was performed, and patient medications and allergies were reviewed. The patient is competent. The risks and benefits of the procedure and the sedation options and risks were discussed with the patient. All questions were answered and informed consent was obtained. Patient identification and proposed procedure were verified by the physician, the nurse, the hogshead mat assembler and the data technician in the pre-procedure area in the endoscopy suite. Mental Status Examination: alert and oriented. Airway Examination: normal oropharyngeal airway and neck mobility. Respiratory Examination: clear to auscultation. CV Examination: normal. Prophylactic Antibiotics: The patient does not require prophylactic antibiotics. Prior Anticoagulants: The patient has taken no anticoagulant or antiplatelet agents. ASA Grade Assessment: II - A patient with mild systemic disease. After reviewing the risks and benefits, the patient was deemed in satisfactory condition to undergo the procedure. The anesthesia plan was to use monitored anesthesia care (MAC). Immediately prior to administration of medications, the patient was re-assessed for adequacy to receive sedatives. The heart rate, respiratory rate, oxygen saturations, blood pressure, adequacy of pulmonary ventilation, and response to care were monitored throughout the procedure. The physical status of the patient was re-assessed after the procedure. After I obtained informed consent, the scope was passed under direct vision. Throughout the procedure, the patient's blood pressure, pulse, and oxygen saturations were monitored continuously. The Colonoscope was introduced through the anus and advanced to the cecum, identified by appendiceal orifice and ileocecal valve. The colonoscopy was performed without difficulty. The patient tolerated the procedure well. The quality of the bowel preparation was good. Findings: Hemorrhoids were found on perianal exam. A 7 mm polyp was found in the transverse colon. The polyp was sessile. The polyp was removed with a cold snare. Resection and retrieval were complete. Estimated blood loss was minimal. Internal hemorrhoids were found during retroflexion. The hemorrhoids were Grade III (internal hemorrhoids that prolapse but require manual reduction). Procedure Code(s): --- Professional --- 81279, Colonoscopy, flexible; with removal of tumor(s), polyp(s), or other lesion(s) by snare technique Diagnosis Code(s): --- Professional --- D12.3, Benign neoplasm of transverse colon (hepatic flexure or splenic flexure) CPT copyright 2020 [employer]. All rights reserved. The codes documented in this report are preliminary and upon certified medical records coder review may be revised to meet current compliance requirements. Elias Melendez MD 03/11/2025 7:53:01 AM This report has been signed electronically.Elias Melendez MD Number of Addenda: 0 Note Initiated On: 03/11/2025 7:37 AM Scope Withdrawal Time: 0 hours 6 minutes 3 seconds Scope In: 7:42:20 AM Scope Out: 7:51:19 AM Endoscopy Department at [facility] - [address] [place] [phone] Procedure Note Elias Melendez MD - 03/11/2025 [facility] GI Patient Name: Park Whitmore Procedure Date: 03/11/2025 7:37 AM Date of : 1970 Age: 54 Gender: Female Note Status: Finalized Attending MD: Elias Melendez MD, Procedure Date No Time: 03/11/2025 Procedure: Colonoscopy Indications: High risk colon cancer surveillance: Personalhistory of colonic polyps, Last colonoscopy: October2019 Providers: Elias Melendez MD Referring MD: Elias Melendez MD Medicines: Monitored Anesthesia Care Complications: No immediate complications. Estimated blood loss: Minimal. Estimated Blood Loss: Estimated blood loss was minimal. Procedure: Pre-Anesthesia Assessment: - Prior to the procedure, a History and Physicalwas performed, and patient medications and allergieswere reviewed. The patient is competent. The risks and benefits of the procedure and the sedation optionsand risks were discussed with the patient. Allquestions were answered and informed consent was obtained. Patient identification and proposed procedure were verified by the physician, the nurse, theanesthetist and the data technician in the pre-procedure area in the endoscopy suite. Mental Status Examination: alertand oriented. Airway Examination: normal oropharyngeal airway and neck mobility. Respiratory Examination: clear to auscultation. CV Examination: normal. Prophylactic Antibiotics: The patient does notrequire prophylactic antibiotics. Prior Anticoagulants: The patient has taken no anticoagulant or antiplatelet agents. ASA Grade Assessment: II - A patient withmild systemic disease. After reviewing the risks and benefits, the patient was deemed in satisfactory condition to undergo the procedure. The anesthesia plan was to use monitored anesthesia care (MAC). Immediately prior to administration of medications, the patient was re-assessed for adequacy to receive sedatives. The heart rate, respiratory rate, oxygen saturations, blood pressure, adequacy of pulmonary ventilation, and response to care were monitored throughout the procedure. The physical status ofthe patient was re-assessed after the procedure. After I obtained informed consent, the scope was passed under direct vision. Throughout theprocedure, the patient's blood pressure, pulse, and oxygen saturations were monitored continuously. The Colonoscope was introduced through the anus and advanced to the cecum, identified by appendiceal orifice and ileocecal valve. The colonoscopy was performed without difficulty. The patient tolerated the procedure well. The quality of the bowel preparation was good. Findings: Hemorrhoids were found on perianal exam. A 7 mm polyp was found in the transverse colon. The polyp was sessile. The polyp was removed with acold snare. Resection and retrieval were complete. Estimated blood loss was minimal. Internal hemorrhoids were found duringretroflexion. The hemorrhoids were Grade III (internalhemorrhoids that prolapse but require manual reduction). Procedure Code(s): --- Professional --- 36122, Colonoscopy, flexible; with removal of tumor(s), polyp(s), or other lesion(s) by snare technique Diagnosis Code(s): --- Professional --- D12.3, Benign neoplasm of transverse colon (hepatic flexure or splenic flexure) CPT copyright 2020 [employer]. All rights reserved. The codes documented in this report are preliminary and upon certified medical records coder reviewmay be revised to meet current compliance requirements. Elias Melendez MD 03/11/2025 7:53:01 AM This report has been signed electronically.Elias Melendez MD Number of Addenda: 0 Note Initiated On: 03/11/2025 7:37 AM Scope Withdrawal Time: 0 hours 6 minutes 3 seconds Scope In: 7:42:20 AM Scope Out: 7:51:19 AM Endoscopy Department at [facility] - [address] [place] [phone] IMPRESSION: - Hemorrhoids found on perianal exam. - One 7 mm polyp in the transverse colon, removedwith a cold snare. Resected and retrieved. - Internal hemorrhoids. Recommendation: - Await pathology results. - Repeat colonoscopy is recommended. Thecolonoscopy date will be determined after pathology resultsfrom today's exam become available for review. us Elias Melendez MD GI~PROCEDURE ORDERABLES Fin al Result * Lipid panel (07/17/2024) Pathologist [facility] LDL/HDL Ratio 3 0 - 4 Triglycerides 110 0 - 150 mg/dL Cholesterol 142 0 - 200 mg/dL HDL 42 >=40 mg/dL LDL Cholesterol 78 0 - 100 mg/dL Blood Venous blood specimen / Unknown Result [facility] Historical Provider LAB BLOOD ORDERABLES Loni l Result * Pap Smear (11/07/2023) Pathologist [facility] Pap smear no interpretation , abstracted Result [facility] Historical Provider HEALTH MAINTENANCE Final Result * Hepatitis C Screening (10/26/2022) Pathologist [facility] Hepatitis C Screening abstracted Result [facility] Historical Provider HEALTH MAINTENANCE Final Result from Last 3 Months or Most Recently Relevant to Health Maintenance Insurance [facility] Advance Directives * Full Code - Default (Latest Code Status on File) Date Activated Date Inactivated Comments 01/07/2025 11:28 AM 01/07/2025 5:40 PM This is ord er is used when code status has not been discussed with the patient, or code status is otherwise unknown/unconfirmed To update the patient's code status, place a code status order. Do not modify or discontinue any currently active code status orders. Care Teams [employer] Relationship Specialty Start Date End Date Bertha Shipman MD [address] [place] [address] [facility] - General 06/25/24
--- OUTSIDE RECORDS SUMMARY | 2025-07-05 07:58 | XMS_ITS ---
Author Name [facility] Organization Unknown Care Team Organization Name Specialty Phone Email Start Date End [facility] wood [facility] Termed, PROVIDER Primary Care 10/02/202206/25
== END 2025-07-05 08:31 | disposition home or self-care (01) ==
PROVIDERS: PCP Physician Assistant Medical; Visit Provider Psychiatry & Neurology Neurology
DX: R41.89 Other symptoms and signs involving cognitive functions and awareness (principal); G47.33 Obstructive sleep apnea (adult) (pediatric)
CPT/HCPCS: 99214